=== PATIENT | female | born 1960 | race Caucasian/White ===

== ENCOUNTER 2022-12-09 12:05 | Day surgery (SDC) | payer OTHER, SELFPAY ==
[2022-12-09] VITALS (7 sets, daily range): BP systolic 114–168; BP diastolic 71–93; PULSE 58–81; RESP 16–18; TEMP 36.3–37; O2SAT 94–99; BMI 29.2
--- NOTE | 2022-12-09 | PATH_ITS ---
[facility] Accession Number: [id number] No. of containers..01 Tissue . 01 Material submitted: . colon - TRANSVERSE COLON . 01 Diagnosis: Transverse Colon, Biopsy: Tubular adenoma. [facility] 12/16/2022 1520 Local . 01 Electronically signed: . Eugenie Cabello MD, Pathologist NPI- [id number] . 01 Gross description: . TRANSVERSE COLON: Received in formalin is 1 fragment(s) of mills, soft tissue measuring 0.4 x 0.3 x 0.2 cm submitted entirely in 1 cassette(s) /BRENDA 12/11/2022 2256 Local . 01 Pathologist provided ICD-10: D12.3 . 01 CPT . 275589 Specimen Comment: A courtesy copy of this report has been sent to [phone] Performed at: 01 [facility] [address] [place] [address], [place], [place] [id number] MD Carlitos Vee MD Phone: [phone]
[2022-12-09] MEDS: LACTATED RINGERS 1,000 ML 200 ML IV (13:58)
--- NOTE | 2022-12-09 14:32 | PM.HP.1 ---
History of Present Illness History of Present Illness Date Patient Seen: 12/09/22 Time Patient Seen: 14:32 Chief complaint: [facility] Narrative: The patient presents for colorectal screening. Family history significant with mother as well as multiple second-degree relatives with colon cancer. Her last colonoscopy was approximately 6 years ago and normal. She occasionally has bright red blood per rectum which she attributes to hemorrhoid disease otherwise no abdominal pain nausea unintentional weight loss. REPLACED BY [facility] Medical History (Updated 12/09/22 @ 14:33 by Fabián Khan MD) Abnormal Pap smear of cervix (~1987) Fibroids (~1989) Foot pain (~2004) Hearing deficit (~2013) HSV (herpes simplex virus) infection (~1973) Kidney stones (~1999) Psoriasis (~1998) Vision abnormalities Surgical History (Updated 02/04/18 @ 15:14 by Yvrose Wong) Anesthesia History of tonsillectomy Status post dilation and curettage Surgical procedure planned Family History (Updated 02/04/18 @ 15:15 by Yvrose Wong) Mother Age: 82 Colon cancer Grandfather Colon cancer Social History household members: spouse Smoking Status: Never smoker alcohol intake: current Meds Home Medications and Allergies Home Medications Medication Instructions Recorded Confirmed Type No Known Home Medications 04/14/19 12/09/22 History Allergies Allergy/AdvReac Type Severity Reaction Status Date / Time No Known Drug Allergies Allergy Verified 12/09/22 13:48 Exam Vital Signs (past 8 hours): - 12/09/22 13:59 Temperature 97.6 F Pulse Rate 78 Respiratory Rate 16 Blood Pressure 168/88 H Pulse Oximetry 99 Oxygen Delivery Method Room Air Oxygen Delivery Method Room Air Narrative Exam Narrative: General adult woman alert oriented no acute distress Assessment & Plan Assessment and plan (1) Family history of colon cancer in mother: Status: Acute Assessment & Plan narrative: The patient requires colorectal screening and colonoscopy is recommended. Technical details were discussed. Risks, benefits, alternatives explained. Risks including but not limited to myocardial infarction, aspiration, bleeding, pain, missed lesion, incomplete examination, need for further radiographic studies, colonic perforation, and need for major abdominal surgery were discussed. All questions were answered to their satisfaction, and they are in agreement with this plan.
--- NOTE | 2022-12-09 14:58 | P.OP.COLON_ITS ---
Operative Date/Time/Diagnoses Date of procedure: 12/09/22 Time of procedure: 14:58 Pre-op diagnosis: Family history of colon cancer, mother Post-op diagnosis: other (Colonic polyp x1) Procedure & Clinicians Study performed: Colonoscopy and polypectomy Same procedure as scheduled: Yes Indications: Family history of colon cancer in mother Colorectal screening Surgeon: Fabián Khan Procedure Notes Procedure in detail: The history and physical was performed/updated and the patient is ASA class is 1. The procedure was discussed in detail with the patient. Potential risks complications including infection, bleeding, missed diagnosis, perforation, need for surgery, and were explained. Their questions were answered and informed consent was obtained. Patient was brought to the procedure room and placed standard monitoring equipm ent. The patient's vital signs were monitored continuously throughout the entire procedure. Prior to starting time-out was performed. The patient was placed in the left lateral recumbent position. Procedural sedation was administered by anesthesia. Examination began with a thorough inspection of the perianal area there was no evidence of fissures, fistulae, external hemorrhoids or cutaneous malignancy. The colonoscopy scope was then placed into the anal canal and was advanced to the cecum, which was identified by the ileocecal valve, the appendiceal orifice and the confluence of the taenia. The scope was then slowly withdrawn examining colon thoroughly in all directions, irrigating it of any residual stool. Within the transverse colon there was a 5 mm polyp which was removed with biopsy forceps. Mild diverticulosis within the sigmoid colon and grade 2 internal hemorrhoids on retroflexion within the rectum. The patient tolerated the procedure well. They will be discharged once criteria are met. The prep was of good/excellent quality. The withdrawl time was 8 minutes. Specimen(s): other (Transverse colon polyp) Impression: Colonic polyp x1 Post-procedure Recommendations: Colonoscopy in 5 years and High fiber diet Disposition: same day surgery
== END 2022-12-09 15:20 | disposition home or self-care (01) ==
PROVIDERS: Family Provider Family Medicine; PCP Physician Assistant; Referring Provider Surgery; Visit Provider Surgery
PROC: 0DJD8ZZ Inspection of Lower Intestinal Tract, Via Natural or Artificial Opening Endoscopic (ICD-10-PCS; CPT 45378; principal; 2022-12-09 13:15)
DX: Z12.11 Encounter for screening for malignant neoplasm of colon (principal); Z80.0 Family history of malignant neoplasm of digestive organs; K57.30 Diverticulosis of large intestine without perforation or abscess without bleeding; K64.1 Second degree hemorrhoids; D12.3 Benign neoplasm of transverse colon
CPT/HCPCS: 45380; J2704